=== PATIENT | male | born 2000 | race Caucasian/White ===

== ENCOUNTER → 2021-12-01 | Outpatient (CLI) | payer OTHER ==
[2021-12-01 09:56] LABS: BUN/CREATININE RATIO 15 (0-10)
[2021-12-02 07:11] LABS: CANCER ANTIGEN (CA) 125 8.2 U/mL (Not Estab.)
[2021-12-03 18:11] LABS: BETA-2 MICROGLOBULIN, SERUM 1.8 mg/L (0.6-2.4)
== END ==
LOC: CT 08:21
PROVIDERS: Physician Assistant
DX: R11.2 Nausea with vomiting, unspecified (principal); R63.4 Abnormal weight loss; R10.13 Epigastric pain; R59.0 Localized enlarged lymph nodes
CPT/HCPCS: 36415; 80053; 82232; 83615; 86304; Q9967